=== PATIENT | female | born 1945 | race Hispanic/Latino ===

== ENCOUNTER → 2024-04-26 | Outpatient (CLI) | payer OTHER | END | disposition home or self-care (01) | LOC: RAH 08:21 | PROVIDERS: ATTEND Internal Medicine | DX: N18.32 Chronic kidney disease, stage 3b (principal); Z90.49 Acquired absence of other specified parts of digestive tract | CPT/HCPCS: 76700 ==

== ENCOUNTER 2024-08-12 19:25 | Observation (INO) | payer OTHER, MEDICARE ==
[~2024-08-12] VITALS: Ht 152.4 cm; Wt 61.2 kg
[2024-08-12] MEDS ORDERED: ATOR20TA65 PO (19:45)
[2024-08-12] MEDS ORDERED: OXYB-66 PO (19:45)
[2024-08-12 20:12] LABS: BASOPHILS # (AUTO) 0.08 K/uL (0.00-0.20); BASOPHILS % (AUTO) 0.8 % (0.0-5.0); EOSINOPHILS # (AUTO) 0.27 K/uL (0.00-0.70); EOSINOPHILS % (AUTO) 2.8 % (0.0-8.0); HEMATOCRIT 37.8 % (36-48); IMMATURE GRANULOCYTE ABSOLUTE 0.02 K/uL (0-1); LYMPHOCYTES # (AUTO) 3.7 K/uL (1.0-4.8); LYMPHOCYTES % (AUTO) 38.7 % (21.0-51.0); MEAN CORPUSCULAR HEMOGLOBIN 31.3 pg (27.0-33.0); MEAN CORPUSCULAR HGB CONC 33.1 g/dL (32.0-36.0); MEAN CORPUSCULAR VOLUME 94.7 fL (79-99); MONOCYTES # (AUTO) 0.8 K/uL (0.1-1.0); MONOCYTES % (AUTO) 8.5 % (3.0-13.0); NEUTROPHILS # (AUTO) 4.7 K/uL (1.8-7.7); PLATELET COUNT (AUTO) 262 K/uL (130-400); RED BLOOD CELL COUNT(AUTO) 3.99 MIL/uL (4.00-5.50); RED CELL DISTRIBUTION WIDTH 13.4 % (11.0-15.5); WHITE BLOOD COUNT (AUTO) 9.5 K/uL (4.8-10.8)
[2024-08-12 20:18] LABS: POTASSIUM 3.8 mmol/L (3.5-5.1)
--- NOTE | 2024-08-12 20:18 | HMCIMG ---
CHEST 1VW CLINICAL HISTORY: sob COMPARISON: None TECHNIQUE: Single view of the chest was obtained. FINDINGS: Lungs are clear. The cardiac size and mediastinum are unremarkable. The bony structures are within normal limits. IMPRESSION: No acute cardiopulmonary process identified.
[2024-08-12 20:27] LABS: MAGNESIUM 2.1 mg/dL (1.80-2.40)
[2024-08-12 20:48] LABS: B-TYPE NATRIURETIC PEPTIDE 36 pg/mL (0-100)
[2024-08-12 21:44] LABS: APPEARANCE,URINE CLEAR (CLEAR); BILIRUBIN,URINE NEGATIVE (NEGATIVE); COLOR,URINE COLORLESS (YELLOW); GLUCOSE, URINE (UA) NEGATIVE (NEGATIVE); KETONES,URINE NEGATIVE (NEGATIVE); LEUKOCYTE ESTERASE ,URINE NEGATIVE Leu/uL (NEGATIVE); NITRATE,URINE NEGATIVE (NEGATIVE); OCCULT BLOOD,URINE NEGATIVE (NEGATIVE); PH,URINE 6.5 (5.0-8.0); PROTEIN,URINE NEGATIVE (NEGATIVE); UROBILINOGEN,URINE 0.2 mg/dL (0.2-1.0)
[2024-08-12 21:45] LABS: ADD UA MICROSCOPIC NO
--- NOTE | 2024-08-12 23:03 | ERN ---
General Chief Complaint: Chest Pain Stated Complaint: CHEST PRESSURE Time Seen by MD: 19:30 Time Seen by Midlevel: 19:30 Source: patient History of Present Illness Initial Comments Patient is a 70-year-old female with a past medical history of hyperlipidemia presenting to the emergency department with intermittent episodes of chest pain described as chest pressure. She reports approximately five of these episodes over the last two weeks. She states the episodes have been increasing in frequency which concerned her so she decided to report to the ER for further evaluation. She does report living alone. The pain usually comes on when she was doing chores around the house. On arrival she specifically denies having any chest pain or shortness for breath but does admit she had chest pressure prior to arrival. Allergies: Coded Allergies: No Known Drug Allergies (Unverified Allergy, Unknown, 08/12/24) Home Meds Reported Medications Atorvastatin Calcium (Atorvastatin Calcium) 20 Mg Tablet, 1 TAB PO HS for 30 Days, #30 TAB 0 Refills 08/12/24 Oxybutynin Chloride (Oxybutynin Chloride ER) 5 Mg Tab.er.24, 1 TAB PO DAILY for 30 Days, #30 TAB 0 Refills 08/12/24 Past Medical History Past Medical History: Diabetes-Type II, High Cholesterol Past Surgical History: Appendectomy, Cholecystectomy, BTL ROS Dictation CONSTITUTIONAL: Negative except for HPI HEAD/FACE: Negative except for HPI EENT: Negative except for HPI RESPIRATORY: Negative except for HPI GASTROINTESTINAL/ABDOMINAL: Negative except for HPI GENITOURINARY: Negative except for HPI MUSCULOSKELETAL: Negative except for HPI INTEGUMENTARY: Negative except for HPI NEUROLOGICAL/PSYCH: Negative except for HPI HEMATOLOGIC/LYMPHATIC: Negative except for HPI All Systems Negative, Except as noted above. 13 point review of systems assessed and all negative except for above. Physical Exam Physical Exam Dictation Vital Signs reviewed General Appearance: Alert, oriented x 3, no acute distress, well developed, nourished. Head and Face: non-traumatic. Eyes: PERRL, pink conjunctivas, eyelid no trauma, anterior chamber with arcus senilis. Ears: Pinnas intact and no signs of trauma or erythema ear canals clear and no discharge TM no erythema Nose: No discharge, no bleeding. Oropharynx: Mouth normal, tongue pink, pharynx clear,no erythema, tonsils no exudates, no abscesses noted, mucous membrane moist Neck: Supple, non-tender, no thyromegaly, no masses, no JVD, no bruits Breast:Deferred Chest:No tenderness, no crepitus, no paradoxical movement, no retractions Lungs:Clear, well-ventilated, symmetric, no rales, no wheezing, no rhonchi, no stridor, good breath sounds bilaterally Heart: Regular rate, regular rhythm, no murmur, no gallops Vascular: no peripheral edema, Abdomen: Soft, positive bowel sounds, nondistended, no guarding, nontender, no rebound, no masses no hepatomegaly, no splenomegaly, no Dodd's sign, no hernias. Rectal: Deferred Genital: Deferred Neurological: Normal speech, motor function intact, sensory function intact Musculoskeletal: Neck nontender, full range of motion, back nontender, full range of motion, Extremities: nontender, full range of motion Skin: Color pink, dry, no turgor, no rash, no lacerations, no abrasions, no contusions. Lymphatic: Deferred Results Laboratory and Microbiology Lab and Micro Result Laboratory Tests Test 08/12/24 20:04 08/12/24 21:11 White Blood Count 9.5 K/uL (4.8-10.8) Red Blood Count 3.99 MIL/uL (4.00-5.50) L Hemoglobin 12.5 g/dL (12.0-16.0) Hematocrit 37.8 % (36-48) Mean Corpuscular Volume 94.7 fL (79-99) Mean Corpuscular Hemoglobin 31.3 pg (27.0-33.0) Mean Corpuscular Hemoglobin Concent 33.1 g/dL (32.0-36.0) Red Cell Distribution Width 13.4 % (11.0-15.5) Platelet Count 262 K/uL (130-400) Mean Platelet Volume 9.0 fL (7.5-10.5) Immature Granulocyte % (Auto) 0.2 % (0-1) Neutrophils (%) (Auto) 49.0 % (40.0-77.0) Lymphocytes (%) (Auto) 38.7 % (21.0-51.0) Monocytes (%) (Auto) 8.5 % (3.0-13.0) Eosinophils (%) (Auto) 2.8 % (0.0-8.0) Basophils (%) (Auto) 0.8 % (0.0-5.0) Neutrophils # (Auto) 4.7 K/uL (1.8-7.7) Lymphocytes # (Auto) 3.7 K/uL (1.0-4.8) Monocytes # (Auto) 0.8 K/uL (0.1-1.0) Eosinophils # (Auto) 0.27 K/uL (0.00-0.70) Basophils # (Auto) 0.08 K/uL (0.00-0.20) Absolute Immature Granulocyte (auto 0.02 K/uL (0-1) Nucleated Red Blood Cells 0.0 % (0.0-0.19) Sodium Level 137 mmol/L (136-145) Potassium Level 3.8 mmol/L (3.5-5.1) Chloride Level 103 mmol/L (101-111) Carbon Dioxide Level 30 mmol/L (21-32) Blood Urea Nitrogen 19 mg/dL (7-18) H Creatinine 1.0 mg/dL (0.5-1.0) Glomerular Filtration Rate Calc 58 mL/min (>90) Random Glucose 90 mg/dL (70-105) Total Calcium 8.5 mg/dL (8.5-10.1) Magnesium Level 2.10 mg/dL (1.80-2.40) Total Creatine Kinase 109 U/L (21-232) Troponin I High Sensitivity 9 ng/L (4-50) B-Type Natriuretic Peptide 36 pg/mL (0-100) Urine Color COLORLESS (YELLOW) Urine Appearance CLEAR (CLEAR) Urine pH 6.5 (5.0-8.0) Urine Specific [place] 1.003 (1.001-1.031) Urine Protein NEGATIVE mg/dL (NEGATIVE) Urine Glucose (UA) NEGATIVE mg/dL (NEGATIVE) Urine Ketones NEGATIVE mg/dL (NEGATIVE) Urine Occult Blood NEGATIVE (NEGATIVE) Urine Nitrate NEGATIVE (NEGATIVE) Urine Bilirubin NEGATIVE mg/dL (NEGATIVE) Urine Urobilinogen 0.2 mg/dL (0.2-1.0) Urine Leukocyte Esterase NEGATIVE Robert/uL Labs Reviewed?: Yes MDM MDM: Differential diagnosis: Acute coronary syndrome, angina, pneumonia, pneumothorax, pulmonary edema, electrolyte abnormality, dehydration Rationale: Tests considered and ordered secondary to shared decision making include: Previous outside records reviewed: Old ER visits. Risk of complication and/or morbidity or mortality of patient management: None Medications-Per medication reconciliation Need for hospitalization: Patient does meet criteria for hospitalization. Need for emergency major/minor surgery: No There are no social concerns with this patient. Prescription drug management Prescriptions will include symptomatic care Patient's prior external medical records from other ER visits were reviewed by me as indicated. Prior testing and results from previous visits were reviewed. Prior tests were taken into account with medical decision making and resource utilization, independent historian/historians were used to obtain complete medical history. I independently interpreted the test that were performed, results were reviewed by me and considered findings on radiology if ordered. Medical management and examination interpretation discussions were had by me with other qualified healthcare professionals as indicated for the patient's care. ED Course Orders Procedure Category Date Status Time 12 Lead Ekg Tracing- EKG 08/12/24 Logged Technical 19:31 Cbc With Differential LAB 08/12/24 Complete 19:31 Basic Metabolic Panel LAB 08/12/24 Complete 19:31 B-Type Natriuretic LAB 08/12/24 Complete Peptide 19:31 Creatine Kinase, Total LAB 08/12/24 Complete 19:31 Magnesium LAB 08/12/24 Complete 19:31 Urinalysis Profile LAB 08/12/24 Complete 19:31 Troponin I High LAB 08/12/24 Complete Sensitivity 19:31 Chest 1vw RAD 08/12/24 Resulted 19:31 Vital Signs Date Time Temp Pulse Resp B/P (MAP) Pulse Ox O2 Delivery O2 Flow Rate FiO2 08/12/24 19:41 98.6 96 16 130/68 100 Room Air* 0 21 08/12/24 19:41 97.5 55 15 130/68 98 Nasal Cannula 2.0 08/12/24 19:37 97.5 55 15 130/68 98 Nasal Cannula* 2 28 HEART Score Response (Comments) Value History: Moderate suspicion (+1) 1 EKG: Normal 0 Age: > 65yrs (+2) 2 Risk Factors: 1-2 risk factors (+1) 1 Initial Troponin: Normal limit (0) 0 HEART Score Risk: Mod Risk for MACE (4-6) Total 4 DX & DISP Disposition: Inpatient Departure Condition: Stable Referrals: EJ GA MD (PCP) I have reviewed the case, and I agree with, Diagnosis and Plan PASQUALE BRIGGS Aug 12, 2024 23:03
--- NOTE | 2024-08-12 23:06 | HP ---
[facility] HISTORY & PHYSICAL Date Patient Seen: Aug 12, 2024 Time of Visit: 23:04 Supervising Physician: Dr Bridger Armstrong Primary Care Physician: Dr Boss Outpatient Specialists: [ ] Inpatient Consults: [ ] PROBLEM LIST: Chest pain, worse with exertion, with unremarkable EKG and negative troponin level Hyperlipidemia, POA Urinary incontinence, POA PLAN: Admit to medical-surgical floor with telemetry VS per unit protocol Regular diet Up ad elly Multimodal pain relief Continue cardiac monitoring Stat troponin level of with chest pain Bilateral SCDs CBC, CMP, magnesium level daily HPI: 78-year-old female with past medical history of hyperlipidemia, urinary incontinence who presented to ED via private vehicle with complaint of chest chest pain that has been ongoing for several days. There is no associated palpitation, shortness of breath, or dizziness. Patient did not require any nitroglycerin or pain reliever at home. According to her she will just like Rest in the chest pain will go away. Apparently patient had mild flu-like symptoms couple of days ago, with periodic nonproductive cough. In ED chest x- ray was done and showed no acute intrapulmonary process, initial EKG and troponin level were unremarkable. On examination patient is alert, not in acute respiratory distress, GCS 15, with slight chest tenderness on palpation on the left. Denies any headache, chest pain, shortness of breath, abdominal pain, fever, or flu-like symptoms. Patient is vaccinated against COVID virus but her flu shot is not up-to-date. She denies also any history of smoking, alcohol intake, or illicit drug use. PAST MEDICAL HX: see above PAST SURGICAL HX: noncontributory SOCIAL HISTORY: No tobacco, ETOH, or illicit drug use Coded Allergies: No Known Drug Allergies (Unverified Allergy, Unknown, 08/12/24) REVIEW OF SYSTEMS: 12 point ROS reviewed with patient. Pertinent positives mentioned above. Otherwise negative. PHYSICAL EXAM: GENERAL: alert, weak, awake oriented x 3 HEENT: EOMI, Sclera non icteric, moist mucosa NECK: Supple, no JVD, trachea midline LUNGS: Clear breath sounds bilaterally. No wheezes HEART: Regular rate and rhythm. Normal S1 and S2, without murmurs ABD: Abdomen soft, nontender. Bowel sounds present EXT: No clubbing cyanosis or edema NEURO: Alert and oriented to person, follows commands Vital Signs (last 8hr) Date Time Temp Pulse Resp B/P (MAP) Pulse Ox O2 Delivery O2 Flow Rate FiO2 08/12/24 19:41 98.6 96 16 130/68 100 Room Air* 0 21 08/12/24 19:41 97.5 55 15 130/68 98 Nasal Cannula 2.0 08/12/24 19:37 97.5 55 15 130/68 98 Nasal Cannula* 2 28 LABS: Hematology Labs: Test 08/12/24 20:04 Range/Units White Blood Count 9.5 4.8-10.8 K/uL Red Blood Count 3.99 L 4.00-5.50 MIL/uL Hemoglobin 12.5 12.0-16.0 g/dL Hematocrit 37.8 36-48 % Mean Corpuscular Volume 94.7 79-99 fL Mean Corpuscular Hemoglobin 31.3 27.0-33.0 pg Mean Corpuscular Hemoglobin Concent 33.1 32.0-36.0 g/dL Red Cell Distribution Width 13.4 11.0-15.5 % Platelet Count 262 130-400 K/uL Mean Platelet Volume 9.0 7.5-10.5 fL Immature Granulocyte % (Auto) 0.2 0-1 % Neutrophils (%) (Auto) 49.0 40.0-77.0 % Lymphocytes (%) (Auto) 38.7 21.0-51.0 % Monocytes (%) (Auto) 8.5 3.0-13.0 % Eosinophils (%) (Auto) 2.8 0.0-8.0 % Basophils (%) (Auto) 0.8 0.0-5.0 % Neutrophils # (Auto) 4.7 1.8-7.7 K/uL Lymphocytes # (Auto) 3.7 1.0-4.8 K/uL Monocytes # (Auto) 0.8 0.1-1.0 K/uL Eosinophils # (Auto) 0.27 0.00-0.70 K/uL Basophils # (Auto) 0.08 0.00-0.20 K/uL Absolute Immature Granulocyte (auto 0.02 0-1 K/uL Nucleated Red Blood Cells 0.0 0.0-0.19 % Chemistry Labs: Test 08/12/24 20:04 Range/Units Sodium Level 137 136-145 mmol/L Potassium Level 3.8 3.5-5.1 mmol/L Chloride Level 103 101-111 mmol/L Carbon Dioxide Level 30 21-32 mmol/L Blood Urea Nitrogen 19 H 7-18 mg/dL Creatinine 1.0 0.5-1.0 mg/dL Glomerular Filtration Rate Calc 58 >90 mL/min Random Glucose 90 70-105 mg/dL Total Calcium 8.5 8.5-10.1 mg/dL Magnesium Level 2.10 1.80-2.40 mg/dL Total Creatine Kinase 109 21-232 U/L Troponin I High Sensitivity 9 4-50 ng/L B-Type Natriuretic Peptide 36 0-100 pg/mL DIAGNOSTICS / RADIOLOGY RESULTS: CHEST 1VW CLINICAL HISTORY: sob COMPARISON: None TECHNIQUE: Single view of the chest was obtained. FINDINGS: Lungs are clear. The cardiac size and mediastinum are unremarkable. The bony structures are within normal limits. IMPRESSION: No acute cardiopulmonary process identified. PLAN NEURO: Minimize central acting medications as possible. Maintain fall precautions, adequate lighting during the day PULMONARY: Supplemental 02 as needed. Maintain aspiration precautions at all times CARDIOVASCULAR: Follow hemodynamics. Vital signs per facility protocol GI & NUTRITION: Continue with nutritional support. Continue stool softeners and laxatives as needed. KIDNEYS & ELECTROLYTES: Strict monitoring of intake, output and overall fluid balance. Avoid nephrotoxic medications to the extent possible. Medications to be dosed according to renal function. Monitor electrolytes and replace as needed ENDOCRINE: Maintain blood glucose between 100-180 at all times. Hypoglycemia protocol in place INFECTIOUS DISEASE: Trend temperature, WBC and procalcitonin level Follow cultures, deescalate antibiotics as soon as possible. Panculture if new onset fever ONCOLOGY/HEMATOLOGY/COAGULATION: Monitor for s/s of bleeding Monitor hemoglobin, coagulation studies as needed SKIN: Pressure ulcer prevention per facility protocol Specialty mattress ORTHO/REHAB: Continue PT/OT Prophylaxis: Continue GI and DVT prophylaxis Code Status: Full Resuscitation Disposition: TBD Other: Total patient care time exceeds 35 minutes excluding all procedures. Supervising physician: NHI Pichardo SHIPPING POINT INSPECTOR Aug 12, 2024 23:06
[2024-08-12] MEDS ORDERED: HYDROcodone/APAP 5/325 1 TAB TABLET PO PRN (23:30)
[2024-08-12] MEDS ORDERED: ondanSETRON 4MG INJ IVP PRN (23:30)
[2024-08-12] MEDS ORDERED: hydrALAZine 20MG/ML VIAL IV PRN (23:30)
[2024-08-12] MEDS ORDERED: acetaMINOPHEN 650 MG SUPPOSITORY RC PRN (23:30)
[2024-08-12] MEDS ORDERED: acetaMINOPHEN 325 MG TAB PO PRN (23:30)
[2024-08-13 06:36] LABS: BASOPHILS % (AUTO) 1.2 % (0.0-5.0); EOSINOPHILS % (AUTO) 3.7 % (0.0-8.0); HEMATOCRIT 37.2 % (36-48); IMMATURE GRANULOCYTE ABSOLUTE 0.02 K/uL (0-1); LYMPHOCYTES # (AUTO) 3.5 K/uL (1.0-4.8); LYMPHOCYTES % (AUTO) 43.6 % (21.0-51.0); MEAN CORPUSCULAR HEMOGLOBIN 31.7 pg (27.0-33.0); MEAN CORPUSCULAR HGB CONC 33.6 g/dL (32.0-36.0); MEAN CORPUSCULAR VOLUME 94.4 fL (79-99); MONOCYTES # (AUTO) 0.7 K/uL (0.1-1.0); MONOCYTES % (AUTO) 8.2 % (3.0-13.0); NEUTROPHILS # (AUTO) 3.5 K/uL (1.8-7.7); NEUTROPHILS % (AUTO) 43.1 % (40.0-77.0); PLATELET COUNT (AUTO) 270 K/uL (130-400); RED BLOOD CELL COUNT(AUTO) 3.94 MIL/uL (4.00-5.50); RED CELL DISTRIBUTION WIDTH 13.5 % (11.0-15.5)
[2024-08-13 06:53] LABS: MAGNESIUM 2.2 mg/dL (1.80-2.40)
[2024-08-13] MEDS: ASCORBIC ACID 500 MG TAB PO SCH (09:31)
[2024-08-13] MEDS: FAMOTIDINE 20MG TAB PO SCH (09:31)
[2024-08-13] MEDS: ENOXAPARIN SODIUM 40 MG/0.4 ML SYRINGE SQ SCH (09:32)
[2024-08-13 12:21] LABS: COVID19 (SARS ANTIGEN RAPID) PRESUMPTIVE NEGATIVE (NEGATIVE); INFLUENZA TYPE A Negative For Type A (NEGATIVE); INFLUENZA TYPE B Negative For Type B (NEGATIVE)
--- NOTE | 2024-08-13 15:11 | NUR ---
INITIAL/DCP HOME Initial assessment completed via phone w JAIME Kuhn. Pt remains in Ed pending bed assignment. Pt admitted w chest pain. EC Dtr Ondina Kuhn [phone]. PCP [address] Boss. Preferred pharmacy [facility]. Pt lives alone. She is independent w ambulation and ADLs. She receives approx 4hrs of provider services per week. Pt is able to drive herself where needed. Discharge goal is to return home. Addendum: 08/13/24 at 1513 by CATHERINE CAMARA Amended: Links added.
[2024-08-13] MEDS ORDERED: PANT40TA54 PO (15:41)
--- NOTE | 2024-08-13 15:41 | DS ---
[facility] DISCHARGE SUMMARY Date Patient Seen: Aug 13, 2024 Time of Visit: 15:41 Supervising Physician: Dr. Bridger Armstrong Primary Care Physician: Dr Boss Outpatient Specialists: [ ] Inpatient Consults: [ ] HOSPITAL COURSE: HPI (per admitting provider) 78-year-old female with past medical history of hyperlipidemia, urinary incontinence who presented to ED via private vehicle with complaint of chest chest pain that has been ongoing for several days. There is no associated palpitation, shortness of breath, or dizziness. Patient did not require any nitroglycerin or pain reliever at home. According to her she will just like Rest in the chest pain will go away. Apparently patient had mild flu-like symptoms couple of days ago, with periodic nonproductive cough. In ED chest x- ray was done and showed no acute intrapulmonary process, initial EKG and troponin level were unremarkable. On examination patient is alert, not in acute respiratory distress, GCS 15, with slight chest tenderness on palpation on the left. Denies any headache, chest pain, shortness of breath, abdominal pain, fever, or flu-like symptoms. Patient is vaccinated against COVID virus but her flu shot is not up-to-date. She denies also any history of smoking, alcohol intake, or illicit drug use. The patient was treated for the following problems: Patient was found to have a normal EKG and unremarkable troponin levels. Chest pain has resolved and patient states that it was intermittent and lasts for 2-3 minutes at a time. Pain is associated with mild anxiety, possible costochondritis. Patient was cleared for discharge at this time with recommendations to follow up with her PCP for referral to outpatient Cardiology and possible Holter monitor. ACTIVE PROBLEM LIST FOR THE HOSPITALIZATION: Chest pain, worse with exertion, with unremarkable EKG and negative troponin level Hyperlipidemia, POA Urinary incontinence, POA CHRONIC PROBLEMS: continue previous management per PCP unless otherwise indicated LOCAL DELIVERY DRIVER FINDINGS/RECOMMENDATIONS: [ ] PROCEDURES: as mentioned above DISCHARGE MEDICATIONS: Pt hemodynamically stable and afebrile at time of discharge. PCP notified of patients admission, hospital course and discharge. PHYSICAL EXAM: GENERAL: alert, weak, awake oriented x 3 HEENT: EOMI, Sclera non icteric, moist mucosa NECK: Supple, no JVD, trachea midline LUNGS: Clear breath sounds bilaterally. No wheezes HEART: Regular rate and rhythm. Normal S1 and S2, without murmurs ABD: Abdomen soft, nontender. Bowel sounds present EXT: No clubbing cyanosis or edema NEURO: Alert and oriented to person, follows commands FOLLOW-UP: Follow-up with PCP in 2-3 days RECOMMENDATIONS: See Discharge Instructions This case was seen and discussed with my supervising physician. More than 30 minutes spent on discharge process, including evaluation of the patient, discussion with nursing staff, medication reconciliation and follow-up appointments AMELIE LIVE Aug 13, 2024 15:41
[2024-08-13 16:22] VITALS: BP 112/70; PULSE 70; RESP 17; TEMP 98; O2SAT 98
--- NOTE | 2024-08-14 12:05 | HMCIMG ---
CHEST 1VW CLINICAL HISTORY: chest pain COMPARISON: None TECHNIQUE: Single view of the chest was obtained. FINDINGS: Lungs are clear. The cardiac size and mediastinum are unremarkable. The bony structures are within normal limits. IMPRESSION: No acute cardiopulmonary process identified.
--- NOTE | 2024-08-15 14:22 | EKG ---
[facility] Test Date: 2024-08-12 Test Time: 18:23:02 Pat Name: SHAYE BRIGGS Department: [facility] Room: ED 15 Gender: Female Director Of Training: [id number] : 1945 Requested By: PASQUALE BRIGGS Order Number: [id number] Reading MD: Measurements Intervals Wayne Rate: 57 P: 54 FL: 150 QRS: -1 QRSD: 92 T: 40 QT: 405 QTc: 393 Interpretive Statements Sinus rhythm Low voltage, extremity leads No previous ECG available for comparison Electronically Signed On 08-14-2024 09:15:00 CATALYTIC CONVERTER OPERATOR by Karen Germain Please click the below link to view image of tracing.
== END 2024-08-13 17:15 | disposition home or self-care (01) ==
LOC: EDH 19:25 → EDHIP 23:02
PROVIDERS: ADMIT Internal Medicine Critical Care Medicine; ATTEND Internal Medicine Critical Care Medicine
DX: R07.89 Other chest pain (principal); Z20.822 Contact with and (suspected) exposure to COVID-19; R32 Unspecified urinary incontinence; E78.5 Hyperlipidemia, unspecified; E11.9 Type 2 diabetes mellitus without complications; Z90.49 Acquired absence of other specified parts of digestive tract; Z98.890 Other specified postprocedural states; Z79.899 Other long term (current) drug therapy
CPT/HCPCS: 99285; 82550; 83735 ×2; 84484; 80048 ×2; 83880; 85025 ×2; 81003; 36415 ×2; 71045 ×2; 93005; 96372; 87804 ×2; 87426; G0378 ×18; J1650